=== PATIENT | male | born 2000 | race Hispanic/Latino ===

== ENCOUNTER 2021-07-29 18:36 | Emergency (ER) | payer OTHER ==
[~2021-07-29] VITALS: Ht 175.3 cm; Wt 91.6 kg
[2021-07-29] MEDS ORDERED: ACETAMINOPHEN 325 MG TAB PO ONE (19:00)
[2021-07-29] MEDS ORDERED: IBUPROFEN600 MG PO (19:43)
[2021-07-29] MEDS ORDERED: METHOCARBAMOL750 MG PO (19:43)
[2021-07-29 20:46] VITALS: BP 129/79
== END 2021-07-29 20:34 | disposition home or self-care (01) ==
LOC: ER 18:42
DX: M54.6 Pain in thoracic spine (principal); V43.52XA Car driver injured in collision with other type car in traffic accident, initial encounter; Y92.488 Other paved roadways as the place of occurrence of the external cause
CPT/HCPCS: 72072; 99283